=== PATIENT | male | born 1955 | race Caucasian/White ===

== ENCOUNTER 2016-12-29 02:21 | Observation (INO) | payer OTHER, MEDICAID ==
[2016-12-29] MEDS ORDERED: Sodium Chloride 0.9% 1,000 ML IV STA (03:33)
--- NOTE | 2016-12-29 03:58 | ED PDOC ---
HPI: Hypertension/Hypotension Time Seen by Provider: 12/29/16 03:15 Chief Complaint (Nursing): Headache Chief Complaint (Provider): Palpitations History Per: Patient History/Exam Limitations: no limitations Onset/Duration Of Symptoms: Hrs (since after work) Current Symptoms Are (Timing): Still Present Associated Symptoms: Headache. denies: Chest Pain, Dyspnea Quality Of Symptoms: Rapid Heart Rate Additional Complaint(s): 61 year old male presents to ED with complaints of palpitations and has a past medical history of CABG and HTN. Patient notes onset of palpitations as when he left work yesterday. (+) nausea and headache. (-) chest pain, SOB, diarrhea, fever, or chills. Of note, patient recently had a normal cardiac catheter. PCP: KINGSLEY Past Medical History Reviewed: Historical Data, Nursing Documentation, Vital Signs Vital Signs: Last Vital Signs Temp 97.8 F 12/29/16 02:28 Pulse 60 12/29/16 02:28 Resp 18 12/29/16 02:28 BP 108/66 12/29/16 02:28 Pulse Ox 98 12/29/16 02:28 - Medical History PMH: CAD, Depression, HTN, Hypercholesterolemia, Hyperlipidemia Denies: No Chronic Diseases, HIV, Chronic Kidney Disease - Surgical History Surgical History: CABG (x1 vessel 2007) - Family History Family History: States: Hypertension - Social History Current smoker - smoking cessation education provided: No Ex-Smoker (has not smoked in the last 12 months): No Alcohol: None Drugs: Denies - Home Medications Home Medications: Ambulatory Orders Medication Instructions Recorded Aspirin 81 mg PO DAILY 11/22/13 Metoprolol Tartrate 50 mg PO DAILY 11/22/13 Perphenazine 8 mg PO BID 11/22/13 QUEtiapine [SEROquel] 100 mg PO DAILY 11/22/13 Atorvastatin [Lipitor] 10 mg PO DAILY 12/29/16 - Allergies Allergies/Adverse Reactions: Allergies Allergy/AdvReac Type Severity Reaction Status Date / Time No Known Allergies Allergy Verified 07/14/16 08:09 Review of Systems ROS Statement: Except As Marked, All Systems Reviewed And Found Negative Constitutional: Negative for: Fever, Chills Cardiovascular: Positive for: Palpitations. Negative for: Chest Pain Respiratory: Negative for: Shortness of Breath Gastrointestinal: Positive for: Nausea. Negative for: Diarrhea Neurological: Positive for: Headache Physical Exam - Reviewed Nursing Documentation Reviewed: Yes Vital Signs Reviewed: Yes - Physical Exam Appears: Positive for: Non-toxic, No Acute Distress Head Exam: Positive for: ATRAUMATIC, NORMOCEPHALIC Skin: Positive for: Normal Color, Warm, Dry Eye Exam: Positive for: Normal appearance, EOMI, PERRL ENT: Positive for: Normal ENT Inspection Neck: Positive for: Normal Cardiovascular/Chest: Positive for: Regular Rate, Rhythm. Negative for: Murmur Respiratory: Positive for: Normal Breath Sounds. Negative for: Respiratory Distress Gastrointestinal/Abdominal: Positive for: Soft, Tenderness (mild epigastric tenderness) Neurologic/Psych: Positive for: Alert, Oriented. Negative for: Motor/Sensory Deficits - Laboratory Results Result Diagrams: 12/29/16 04:05 12/29/16 04:59 - ECG ECG Rhythm: Positive for: Sinus Bradycardia Interpretation Of ECG: T wave inversion noted to I and IV. Old when compared to July 16, 2016 EKG Rate: 56 O2 Sat by Pulse Oximetry: 98 (RA) Pulse Ox Interpretation: Normal - Progress ED Course And Treament: head ct: FINDINGS: Brain: Minimal periventricular white matter hypodensity. No hemorrhage. Ventricles: Unremarkable. No ventriculomegaly. Bones/joints: Unremarkable. No acute fracture. Soft tissues: Unremarkable. Sinuses: Mild patchy sinus disease. Mastoid air cells: Unremarkable. No mastoid effusion. Orbits: The globe and lens are intact. IMPRESSION: No evidence of an acute intracranial hemorrhage, midline shift or mass effect is identified. Thank you for allowing us to participate in the care of your patient. Dictated and Authenticated by: Alejandra Gomez MD REpeat EKG: no hyperpeak t wave noted. no change from prior . Potassium 5.9 Repeat potassium 6.1 slightly hemolysed d/w Dr. Cynthia Rodrigez 30gm/Reg insulin 10mg iv/ 1 am d[address] Call [address] Bautista for admission. Medical Decision Making Medical Decision Makin Initial impression: palpitations and headache Initial plan * CT HEAD * EKG * Labs * Magnesium * TSH * Trop I * CXR * NS IV * Acetaminophen 650mg PO * Re-eval Scribe Attestation: Documented by Patricia Hernandez acting as a scribe for Carolina Santos PA-C. MD Scribe Attestation: All medical record entries made by the Scribe were at my direction and personally dictated by me. I have reviewed the chart and agree that the record accurately reflects my personal performance of the history, physical exam, medical decision making, and the department course for this patient. I have also personally directed, reviewed, and agree with the discharge instructions and disposition. Disposition - Clinical Impression Clinical Impression: Hyperkalemia, Palpitations, Dehydration - Patient ED Disposition Is Patient to be Admitted: Transfer of Care - Disposition Disposition: Transfer of Care Disposition Time: 06:04 Condition: FAIR Forms: Appscend (Swedish) Patient Signed Over To: Rebecca Marie Handoff Comments: pending d/w Dr. Bautista for admission. - Pt Status Changed To: Hospital Disposition Of: Observation
[2016-12-29 04:13] LABS: BASO % 0.8 % (0.0-2.0); EOS # 0.1 K/uL (0.0-0.7); EOS % 0.9 % (0.0-4.0); HEMATOCRIT 40.3 % (35.0-51.0); LYMPH # 1.3 K/uL (1.0-4.3); LYMPH % 23.2 % (20.0-40.0); MEAN CELL VOLUME 91.6 fl (80.0-94.0); MEAN CORPUSCULAR HGB CONC 33.8 g/dL (33.0-37.0); MEAN PLATELET VOLUME 10.8 fl (7.2-11.7); MONO # 0.5 K/uL (0.0-0.8); MONO % 8.8 % (0.0-10.0); NEUT # 3.9 K/uL (1.8-7.0); NEUT % 66.3 % (50.0-75.0); NRBC % 0.1 % (0.0-0.0); WHITE BLOOD COUNT 5.8 K/uL (4.8-10.8)
[2016-12-29 04:18] LABS: BLOOD UREA NITROGEN 28 mg/dl (9-20); CALCIUM 8.9 mg/dL (8.4-10.2); CARBON DIOXIDE 20 mmol/L (22-30); CHLORIDE 107 mmol/L (98-107); GFR AFRICAN-AMERICAN > 60; GLUCOSE,RANDOM 103 mg/dL (75-110); MAGNESIUM 1.9 MG/DL (1.6-2.3); POTASSIUM 5.9 MMOL/L (3.6-5.0); SODIUM 137 mmol/l (132-148)
[2016-12-29 04:49] LABS: THYROID STIMULATING HORMONE 1.08 mIU/ML (0.46-4.68)
--- NOTE | 2016-12-29 04:51 | CT ---
EXAM: CT Head Without Intravenous Contrast CLINICAL HISTORY: 61 years old, male; Pain; Headache TECHNIQUE: Axial computed tomography images of the head/brain without intravenous contrast. All CT scans at this facility use one or more dose reduction techniques, viz.: automated exposure control; ma/kV adjustment per patient size (including targeted exams where dose is matched to indication; i.e. head); or iterative reconstruction technique. 315 images are submitted. Coronal and sagittal reformatted images were created and reviewed. COMPARISON: CT - HEAD W/O CONTRAST 2013-11-23 10:13 FINDINGS: Brain: Minimal periventricular white matter hypodensity. No hemorrhage. Ventricles: Unremarkable. No ventriculomegaly. Bones/joints: Unremarkable. No acute fracture. Soft tissues: Unremarkable. Sinuses: Mild patchy sinus disease. Mastoid air cells: Unremarkable. No mastoid effusion. Orbits: The globe and lens are intact. IMPRESSION: No evidence of an acute intracranial hemorrhage, midline shift or mass effect is identified.
[2016-12-29] MEDS ORDERED: Insulin Regular 100 units/ml IV STA (05:22)
[2016-12-29] MEDS ORDERED: Dextrose 50% SYRINGE Inj (50 ml) IVP ONE (05:22)
[2016-12-29] MEDS ORDERED: Sod Polystyrene Sulf 15 gm/60 ml Susp PO STA (05:23)
[2016-12-29] MEDS ORDERED: Dextrose 50% SYRINGE Inj (50 ml) ONE (05:31)
[2016-12-29] MEDS ORDERED: Insulin Regular 100 units/ml ONE (05:31)
[2016-12-29] MEDS ORDERED: Sod Polystyrene Sulf 15 gm/60 ml Susp ONE (05:32)
--- NOTE | 2016-12-29 07:35 | CARD ---
APPROVED REPORT EKG Measurement Heart [id number] <Conclusion> Sinus bradycardia Possible Left atrial enlargement T wave abnormality, consider anterior ischemia Abnormal ECG
--- NOTE | 2016-12-29 09:01 | RAD ---
HISTORY: PALPITATIONS COMPARISON: 07/14/2016 FINDINGS: LUNGS: Lung volumes lower limits of normal. No definitive consolidation suggested. The asymmetrically elevated left hemidiaphragm is as before. PLEURA: No significant pleural effusion identified, no pneumothorax apparent. CARDIOVASCULAR: Probable top-normal heart size. Midline sternotomy and coronary artery bypass surgery. Pulmonary vasculature within normal limits. OSSEOUS STRUCTURES: No significant abnormalities. VISUALIZED UPPER ABDOMEN: Normal. OTHER FINDINGS: None. IMPRESSION: No interval pathology appreciated. Status post CABG/midline sternotomy Similar asymmetrically elevated left hemidiaphragm.
[2016-12-29] MEDS: Sodium Chloride 0.9% 1,000 ML IV SCH ×2 (13:21→20:53)
--- NOTE | 2016-12-29 14:24 | CP.PCM.HP ---
History of Present Illness - History of Present Illness History of Present Illness: Patient seen and examined with Dr. Bautista. 61 year old male presented with complaints of chest and abdominal discomfort for one day with associated palpitations. He has had diarrhea since arrival in ED. He is hyperkalemic, states he ate a lot bananas. He has hx of HTN and CABG, cardiac cath this year. 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 No other complaints. Given patients extensive cardiac hx is being admitted for hyperkalemia and dehydration. Rule out ACS. 12 point review of systems negative except as above Present on Admission - Present on Admission Any Indicators Present on Admission: No Past Patient History - Past Medical History & Family History Past Medical History?: Yes - Past Social History Alcohol: None Drugs: Denies - CARDIAC Hx Hypercholesterolemia: Yes Hx Hypertension: Yes - PULMONARY Hx Respiratory Disorders: No - NEUROLOGICAL Hx Neurological Disorder: No - HEENT Hx HEENT Problems: No - RENAL Hx Chronic Kidney Disease: No - ENDOCRINE/METABOLIC Hx Endocrine Disorders: No - HEMATOLOGICAL/ONCOLOGICAL Hx Human Immunodeficiency Virus (HIV): No - INTEGUMENTARY Hx Dermatological Problems: No - MUSCULOSKELETAL/RHEUMATOLOGICAL Hx Musculoskeletal Disorders: No Hx Falls: No - GASTROINTESTINAL Hx Gastrointestinal Disorders: No - GENITOURINARY/GYNECOLOGICAL Hx Genitourinary Disorders: No - PSYCHIATRIC Hx Depression: Yes - SURGICAL HISTORY Hx Coronary Artery Bypass Graft: Yes (x1 vessel 2007) - ANESTHESIA Hx Anesthesia: Yes Hx Anesthesia Reactions: No Hx Malignant Hyperthermia: No Meds Allergies/Adverse Reactions: Allergies Allergy/AdvReac Type Severity Reaction Status Date / Time No Known Allergies Allergy Verified 07/14/16 08:09 Physical Exam - Constitutional Appears: Well, Non-toxic, No Acute Distress - Head Exam Head Exam: ATRAUMATIC, NORMAL INSPECTION, NORMOCEPHALIC - Eye Exam Eye Exam: PERRL - ENT Exam ENT Exam: Mucous Membranes Moist - Neck Exam Neck exam: Positive for: Normal Inspection - Respiratory Exam Respiratory Exam: Clear to Auscultation Bilateral, NORMAL BREATHING PATTERN - Cardiovascular Exam Cardiovascular Exam: REGULAR RHYTHM, +S1, +S2 - GI/Abdominal Exam GI & Abdominal Exam: Soft. absent: Diminished Bowel Sounds, Distended, Guarding , Tenderness - Extremities Exam Extremities exam: Negative for: pedal edema - Neurological Exam Neurological exam: Alert, CN II-XII Intact, Normal Gait, Oriented x3, Reflexes Normal - Psychiatric Exam Psychiatric exam: Normal Affect, Normal Mood - Skin Skin Exam: Dry, Intact, Normal Color, Warm Results - Vital Signs Recent Vital Signs: Last Vital Signs Temp 98.2 F 12/29/16 13:00 Pulse 65 12/29/16 13:00 Resp 19 12/29/16 13:00 BP 112/75 12/29/16 13:00 Pulse Ox 99 12/29/16 13:00 - Labs Result Diagrams: 12/29/16 04:05 12/29/16 04:59 Labs: Laboratory Results - last 24 hr 12/29/16 12/29/16 12/29/16 04:05 04:05 04:59 WBC 5.8 RBC 4.40 Hgb 13.6 Hct 40.3 MCV 91.6 MCH 31.0 MCHC 33.8 RDW 13.0 Plt Count 124 L MPV 10.8 Neut % (Auto) 66.3 Lymph % (Auto) 23.2 Crane % (Auto) 8.8 Eos % (Auto) 0.9 Baso % (Auto) 0.8 Neut # 3.9 Lymph # 1.3 Crane # 0.5 Eos # 0.1 Baso # 0.0 Sodium 137 Potassium 5.9 H 6.1 H Chloride 107 Carbon Dioxide 20 L Anion Gap 16 BUN 28 H Creatinine 1.4 Est GFR ( Amer) > 60 Est GFR (Non-Af Amer) 52 Random Glucose 103 Calcium 8.9 Magnesium 1.9 Troponin I < 0.0120 TSH 3rd Generation 1.08 Assessment & Plan - Assessment and Plan (Free Text) Assessment: 61 year old male with extensive cardiac hx, admitted for palpitations, found to have hyperkalemia and dehydration. IVF started. Dr. Riley consulted. Repeat BMP in AM. Pt had dose of insulin and kayexelate. #Palpitations #Hyperkalemia #Dehydration #HTN #CAD, s/p CABG #DVT Prophylaxis -telemetry monitoring -lovenox -BP is controlled. case d/w Dr. Bautista.
--- NOTE | 2016-12-29 16:52 | CP.PCM.CON ---
History of Present Illness - History of Present Illness History of Present Illness: I was asked to see patient by Dr Bautista. Patient is a 61 year old male with a PMH CAD, HTN, hypercholesterolemia who presents with palpitations. The patient describes a sensation of rapid heart beat which began while he was finishing work. He had a headache, and felt chest pounding. The patient denies syncope. He came to the hosptial. Currently he is asymptomatic. Review of Systems - Constitutional Constitutional: absent: As Per HPI, Anorexia, Chills, Daytime Sleepiness, Excessive Sweating, Fatigue, Fever, Frequent Falls, Headache, Increased Appetite , Lethargy, Malaise, Night Sweats, Snoring, Sleep Apnea, Weight Gain, Weight Loss, Weakness, Other - EENT Eyes: absent: As Per HPI, Blind Spots, Blurred Vision, Change in Vision, Decreased Night Vision, Diplopia, Discharge, Dry Eye, Exophthalmos, Floaters, Irritation, Itchy Eyes, Loss of Peripheral Vision, Pain, Photophobia, Requires Corrective Lenses, Sees Flashes, Spots in Vision, Tunnel Vision, Other Visual Disturbances, Loss of Vision, Other Nose/Mouth/Throat: absent: As Per HPI, Epistaxis, Nasal Congestion, Nasal Discharge, Nasal Obstruction, Nasal Trauma, Nose Pain, Post Nasal Drip, Sinus Pain, Sinus Pressure, Bleeding Gums, Change in Voice, Dental Pain, Dry Mouth, Dysphagia, Halitosis, Hoarsness, Lip Swelling, Mouth Lesions, Mouth Pain, Odynophagia, Sore Throat, Throat Swelling, Tongue Swelling, Facial Pain, Neck Pain, Neck Mass, Other - Cardiovascular Cardiovascular: Palpitations - Respiratory Respiratory: absent: As Per HPI, Cough, Dyspnea, Hemoptysis, Dyspnea on Exertion , Wheezing, Snoring, Stridor, Pain on Inspiration, Chest Congestion, Excessive Mucous Production, Change in Mucous Color, Pain with Coughing, Other - Gastrointestinal Gastrointestinal: absent: As Per HPI, Abdominal Pain, Belching, Bloating, Change in Bowel Habits, Change in Stool Character, Coffee Ground Emesis, Constipation, Cramping, Diarrhea, Dyspepsia, Dysphagia, Early Satiety, Excessive Flatus, Fecal Incontinence, Heartburn, Hematemesis, Hematochezia, Loose Stools, Melena, Nausea, Odynophagia, Temesmus, Vomiting, Other - Genitourinary Genitourinary: absent: As Per HPI, Change in Urinary Stream, Difficulty Urinating, Dysuria, Flank Pain, Hematuria, Pyuria, Nocturia, Urinary Incontinence, Urinary Frequency, Urinary Hesitance, Urinary Urgency, Voiding Freq/Small Amts, Freq UTI, Hx Renal/Bladder Calculi, Hx /Renal Surgery, Bladder Distension, Other - Musculoskeletal Musculoskeletal: absent: As Per HPI, Abnormal Gait, Arthralgias, Atrophy, Back Pain, Deformity, Joint Swelling, Limited Range of Motion, Loss of Height, Muscle Cramps, Muscle Weakness, Myalgias, Neck Pain, Numbness, Radiating Pain into Limb, Stiffness, Tingling, Other - Integumentary Integumentary: absent: As Per HPI, Acne, Alopecia, Bleeding Lesions, Change in Hair, Change in Nails, Change in Pigmentation, Changing Lesions, Dry Skin, Erythema, Furuncle, Hirsutism, Lesions, New Lesions, Non-Healing Lesions, Photosensitivity, Pruritus, Rash, Skin Pain, Skin Ulcer, Sores, Striae, Swelling , Unusual Bruising, Wounds, Jaundice, Other - Neurological Neurological: absent: As Per HPI, Abnormal Gait, Abnormal Hearing, Abnormal Movements, Abnormal Speech, Behavioral Changes, Burning Sensations, Confusion, Convulsions, Disequilibrium, Dizziness, Numbness, Focal Weakness, Frequent Falls , Headaches, Lack of Coordination, Loss of Vision, Memory Loss, Paresthesias, Radicular Pain, Restless Legs, Sensory Deficit, Syncope, Tingling, Tremor, Vertigo, Weakness, Other Visual Disturbances, Other - Psychiatric Psychiatric: absent: As Per HPI, Abnormal Sleep Pattern, Anhedonia, Anxiety, Auditory Hallucinations, Behavioral Changes, Change in Appetite, Change in Libido, Confusion, Depression, Difficulty Concentrating, Hallucinations, Homicidal Ideation, Hopelessness, Irritability, Memory Loss, Mood Swings, Panic Attacks, Paranoia, Suicidal Ideation, Visual Hallucinations, Tactile Hallucinations, Other - Endocrine Endocrine: absent: As Per HPI, Change in Body Appearance, Change in Libido, Cold Intolorance, Deepening of Voice, Excessive Sweating, Fatigue, Flushing, Heat Intolorance, Increase in Ring/Shoe/Hat Size, Palpitations, Polydipsia, Polyphagia, Polyuria, Other - Hematologic/Lymphatic Hematologic: absent: As Per HPI, Easy Bleeding, Easy Bruising, Lymphadenopathy, Other Past Patient History - Past Medical History & Family History Past Medical History?: Yes - Past Social History Alcohol: None Drugs: Denies - CARDIAC Hx Cardiac Disorders: Yes - PULMONARY Hx Respiratory Disorders: No - NEUROLOGICAL Hx Neurological Disorder: No - HEENT Hx HEENT Problems: No - RENAL Hx Chronic Kidney Disease: No - ENDOCRINE/METABOLIC Hx Endocrine Disorders: No - HEMATOLOGICAL/ONCOLOGICAL Hx Human Immunodeficiency Virus (HIV): No - INTEGUMENTARY Hx Dermatological Problems: No - MUSCULOSKELETAL/RHEUMATOLOGICAL Hx Musculoskeletal Disorders: No - GASTROINTESTINAL Hx Gastrointestinal Disorders: No - GENITOURINARY/GYNECOLOGICAL Hx Genitourinary Disorders: No - PSYCHIATRIC Hx Psychophysiologic Disorder: No - SURGICAL HISTORY Hx Coronary Artery Bypass Graft: Yes (x1 vessel 2008) - ANESTHESIA Hx Anesthesia: Yes Hx Anesthesia Reactions: No Hx Malignant Hyperthermia: No Meds Allergies/Adverse Reactions: Allergies Allergy/AdvReac Type Severity Reaction Status Date / Time No Known Allergies Allergy Verified 07/14/16 08:09 - Medications Medications: Current Medications Aspirin (Aspirin Chewable) 81 mg PO DAILY [facility] Atorvastatin Calcium (Lipitor) 10 mg PO DAILY [facility] Enoxaparin Sodium (Lovenox) 40 mg SC DAILY [facility] PRN Reason: Protocol Sodium Chloride (Sodium Chloride 0.9%) 1,000 mls @ 150 mls/hr IV .Q6H40M [facility] Stop: 12/30/16 12:23 Last Admin: 12/29/16 13:21 Dose: 150 mls/hr Metoprolol Tartrate (Lopressor) 50 mg PO DAILY [facility] Perphenazine (Perphenazine) 8 mg PO BID [facility] Quetiapine Fumarate (Seroquel) 100 mg PO DAILY [facility] Physical Exam - Constitutional Appears: Non-toxic - Head Exam Head Exam: NORMAL INSPECTION - Eye Exam Eye Exam: Normal appearance - ENT Exam ENT Exam: Mucous Membranes Moist - Neck Exam Neck exam: Positive for: Full Rom - Respiratory Exam Respiratory Exam: Decreased Breath Sounds - Cardiovascular Exam Cardiovascular Exam: REGULAR RHYTHM - GI/Abdominal Exam GI & Abdominal Exam: Normal Bowel Sounds - Rectal Exam Rectal Exam: Deferred - Extremities Exam Extremities exam: Positive for: pedal edema - Back Exam Back exam: NORMAL INSPECTION - Neurological Exam Neurological exam: Alert, Oriented x3 - Psychiatric Exam Psychiatric exam: Normal Affect - Skin Skin Exam: Normal Color Results - Vital Signs Recent Vital Signs: Last Vital Signs Temp 97.8 F 12/29/16 16:05 Pulse 80 12/29/16 16:05 Resp 20 12/29/16 16:05 BP 126/81 12/29/16 16:05 Pulse Ox 95 12/29/16 16:05 - Labs Result Diagrams: 12/29/16 04:05 12/29/16 04:59 Labs: Laboratory Results - last 24 hr 12/29/16 12/29/16 12/29/16 04:05 04:05 04:59 WBC 5.8 RBC 4.40 Hgb 13.6 Hct 40.3 MCV 91.6 MCH 31.0 MCHC 33.8 RDW 13.0 Plt Count 124 L MPV 10.8 Neut % (Auto) 66.3 Lymph % (Auto) 23.2 Chaves % (Auto) 8.8 Eos % (Auto) 0.9 Baso % (Auto) 0.8 Neut # 3.9 Lymph # 1.3 Chaves # 0.5 Eos # 0.1 Baso # 0.0 Sodium 137 Potassium 5.9 H 6.1 H Chloride 107 Carbon Dioxide 20 L Anion Gap 16 BUN 28 H Creatinine 1.4 Est GFR ( Amer) > 60 Est GFR (Non-Af Amer) 52 Random Glucose 103 Calcium 8.9 Magnesium 1.9 Troponin I < 0.0120 TSH 3rd Generation 1.08 12/29/16 14:30 WBC RBC Hgb Hct MCV MCH MCHC RDW Plt Count MPV Neut % (Auto) Lymph % (Auto) Chaves % (Auto) Eos % (Auto) Baso % (Auto) Neut # Lymph # Chaves # Eos # Baso # Sodium Potassium Chloride Carbon Dioxide Anion Gap BUN Creatinine Est GFR ( Amer) Est GFR (Non-Af Amer) Random Glucose Calcium Magnesium Troponin I < 0.0120 TSH 3rd Generation - EKG Data EKG Interpreted by: Myself Assessment & Plan (1) Palpitations Assessment and Plan: will monitor on telemetry. If no further arrhythmia, likely discharge tomorrow. Status: Acute (2) CAD (coronary artery disease) of artery bypass graft Assessment and Plan: ASA therapy Status: Chronic (3) HTN (hypertension) Assessment and Plan: beta kristi therapy is recommended Status: Chronic
[2016-12-30] MEDS: Sodium Chloride 0.9% 1,000 ML IV SCH (02:39)
[2016-12-30 06:46] LABS: BLOOD UREA NITROGEN 15 mg/dl (9-20); CALCIUM 8.2 mg/dL (8.4-10.2); CARBON DIOXIDE 21 mmol/L (22-30); CHLORIDE 111 mmol/L (98-107); GFR AFRICAN-AMERICAN > 60; GLUCOSE,RANDOM 89 mg/dL (75-110); POTASSIUM 4.3 MMOL/L (3.6-5.0); SODIUM 140 mmol/l (132-148)
[2016-12-30] MEDS ORDERED: Enoxaparin 40 mg Syringe SC SCH (09:00)
--- NOTE | 2016-12-30 12:02 | CP.PCM.DIS ---
Provider - Provider Date of Admission: 12/29/16 06:25 Attending physician: Emmanuel Bautista MD Consults: Cardiology: Dr. Riley Time Spent in preparation of Discharge (in minutes): 35 Diagnosis - Discharge Diagnosis (1) Dehydration Status: Resolved (2) Hyperkalemia Status: Resolved (3) Palpitations Status: Resolved Hospital Course - Lab Results Lab Results: Most Recent Lab Values WBC 5.8 K/uL (4.8-10.8) 12/29/16 04:05 RBC 4.40 Mil/uL (4.40-5.90) 12/29/16 04:05 Hgb 13.6 g/dL (12.0-18.0) 12/29/16 04:05 Hct 40.3 % (35.0-51.0) 12/29/16 04:05 MCV 91.6 fl (80.0-94.0) 12/29/16 04:05 MCH 31.0 pg (27.0-31.0) 12/29/16 04:05 MCHC 33.8 g/dL (33.0-37.0) 12/29/16 04:05 RDW 13.0 % (11.5-14.5) 12/29/16 04:05 Plt Count 124 K/uL (130-400) L 12/29/16 04:05 MPV 10.8 fl (7.2-11.7) 12/29/16 04:05 Neut % (Auto) 66.3 % (50.0-75.0) 12/29/16 04:05 Lymph % (Auto) 23.2 % (20.0-40.0) 12/29/16 04:05 Trinity % (Auto) 8.8 % (0.0-10.0) 12/29/16 04:05 Eos % (Auto) 0.9 % (0.0-4.0) 12/29/16 04:05 Baso % (Auto) 0.8 % (0.0-2.0) 12/29/16 04:05 Neut # 3.9 K/uL (1.8-7.0) 12/29/16 04:05 Lymph # 1.3 K/uL (1.0-4.3) 12/29/16 04:05 Trinity # 0.5 K/uL (0.0-0.8) 12/29/16 04:05 Eos # 0.1 K/uL (0.0-0.7) 12/29/16 04:05 Baso # 0.0 K/uL (0.0-0.2) 12/29/16 04:05 Sodium 140 mmol/l (132-148) 12/30/16 04:20 Potassium 4.3 MMOL/L (3.6-5.0) 12/30/16 04:20 Chloride 111 mmol/L (98-107) H 12/30/16 04:20 Carbon Dioxide 21 mmol/L (22-30) L 12/30/16 04:20 Anion Gap 12 (10-20) 12/30/16 04:20 BUN 15 mg/dl (9-20) 12/30/16 04:20 Creatinine 1.0 mg/dl (0.8-1.5) 12/30/16 04:20 Est GFR ( Amer) > 60 12/30/16 04:20 Est GFR (Non-Af Amer) > 60 12/30/16 04:20 Random Glucose 89 mg/dL (75-110) 12/30/16 04:20 Calcium 8.2 mg/dL (8.4-10.2) L 12/30/16 04:20 Magnesium 1.9 MG/DL (1.6-2.3) 12/29/16 04:05 Troponin I < 0.0120 ng/mL (0.00-0.120) 12/29/16 14:30 TSH 3rd Generation 1.08 mIU/ML (0.46-4.68) 12/29/16 04:05 - Hospital Course Hospital Course: 61 year old male admitted with hyperkaleia, dehydration and palpiations. Seen and evaluated by cardiology, Dr. Riley. Patient feeling better. Hypokalemia and dehydration resolved. Follow up with PCP and Iron Installer outpatient. - Date & Time of H&P Date of H&P: 12/29/16 Time of H&P: 14:24 Discharge Exam - Head Exam Head Exam: ATRAUMATIC, NORMAL INSPECTION, NORMOCEPHALIC - Eye Exam Eye Exam: EOMI, Normal appearance, PERRL - Respiratory Exam Respiratory Exam: Clear to PA & Lateral, NORMAL BREATHING PATTERN, UNREMARKABLE - Cardiovascular Exam Cardiovascular Exam: REGULAR RHYTHM, +S1, +S2. absent: Bradycardia, Tachycardia , Diastolic murmur, Systolic Murmur - GI/Abdominal Exam GI & Abdominal Exam: Normal Bowel Sounds, Unremarkable - Neurological Exam Neurological exam: Alert, CN II-XII Intact, Normal Gait, Oriented x3 - Psychiatric Exam Psychiatric exam: Normal Affect, Normal Mood - Skin Skin Exam: Dry, Intact, Normal Color, Warm Discharge Plan - Follow Up Plan Condition: FAIR Disposition: HOME/ ROUTINE Instructions: Hyperkalemia (DC), Dehydration (DC), Palpitations (DC) Referrals: Min Riley MD [Staff Provider] -
[2016-12-30 12:43] VITALS: O2SAT 98
[2016-12-30 16:20] VITALS: BP 138/79; PULSE 74; RESP 18; TEMP 98.8
== END 2016-12-30 12:45 | disposition home or self-care (01) ==
LOC: H.ER 02:21 → H.ERHOLD 06:25 → H.TEL 16:03
PROVIDERS: ADMIT Family Medicine; ATTEND Family Medicine
DX: E86.0 Dehydration (principal); E87.5 Hyperkalemia; R00.2 Palpitations; I25.10 Atherosclerotic heart disease of native coronary artery without angina pectoris; Z95.1 Presence of aortocoronary bypass graft; I10 Essential (primary) hypertension; E78.00 Pure hypercholesterolemia, unspecified; E78.5 Hyperlipidemia, unspecified; R19.7 Diarrhea, unspecified; F32.9 Major depressive disorder, single episode, unspecified
CPT/HCPCS: 36415; 70450; 71010; 80048; 83735; 84132; 84443; 84484; 85025; 93005; 96374; 99285; G0378; J1650; J7040; Q0175

== ENCOUNTER 2017-02-01 22:20 | Emergency (ER) | payer OTHER, MEDICAID ==
[2017-02-01 22:24] VITALS: PULSE 57; RESP 22; TEMP 98.1; O2SAT 98
[2017-02-01] MEDS ORDERED: Sodium Chloride 0.9% 1,000 ML IV STA (22:37)
--- NOTE | 2017-02-01 22:40 | ED PDOC ---
HPI:Nausea, Vomiting, Diarrhea Time Seen by Provider: 02/01/17 22:28 Chief Complaint (Nursing): Abdominal Pain Chief Complaint (Provider): vomiting, diarrhea History Per: Patient History/Exam Limitations: no limitations Onset/Duration Of Symptoms: Days (1) Current Symptoms Are (Timing): Still Present Quality Of Discomfort: Cramping, "Pain" Associated Symptoms: Nausea, Vomiting, Diarrhea Additional History Per: Patient Additional Complaint(s): 61 y/o male presents with multiple episodes of vomiting and nonbloody diarrhea x 1 day. Associated diffuse abdominal cramping. Patient states symptoms started after eating a chicken soup. Denies fever, congestion, chest pain, shortness of breath, palpitations, urinary symptoms, recent travel, sick contacts. Past Medical History Reviewed: Historical Data, Nursing Documentation, Vital Signs Vital Signs: Last Vital Signs Temp 98.1 F 02/01/17 22:22 Pulse 57 L 02/01/17 22:22 Resp 22 02/01/17 22:22 BP 171/105 H 02/01/17 22:22 Pulse Ox 98 02/01/17 22:22 - Medical History PMH: CAD, Depression, HTN, Hypercholesterolemia, Hyperlipidemia Denies: HIV, Chronic Kidney Disease - Surgical History Surgical History: CABG (x1 vessel 2007) - Family History Family History: States: Hypertension - Home Medications Home Medications: Ambulatory Orders Medication Instructions Recorded Aspirin 81 mg PO DAILY 11/22/13 Metoprolol Tartrate 50 mg PO DAILY 11/22/13 Perphenazine 8 mg PO BID 11/22/13 QUEtiapine [SEROquel] 100 mg PO DAILY 11/22/13 Atorvastatin [Lipitor] 10 mg PO DAILY 12/29/16 Dicyclomine [Bentyl] 20 mg PO TID PRN #15 tab 02/02/17 Famotidine [Pepcid] 20 mg PO BID #10 tab 02/02/17 Ondansetron ODT [Zofran ODT] 4 mg PO Q8 PRN #10 odt 02/02/17 - Allergies Allergies/Adverse Reactions: Allergies Allergy/AdvReac Type Severity Reaction Status Date / Time No Known Allergies Allergy Verified 07/14/16 08:09 Review of Systems ROS Statement: Except As Marked, All Systems Reviewed And Found Negative Gastrointestinal: Positive for: Nausea, Vomiting, Abdominal Pain, Diarrhea Physical Exam - Reviewed Nursing Documentation Reviewed: Yes Vital Signs Reviewed: Yes - Physical Exam Appears: Positive for: Well, Non-toxic, Uncomfortable Head Exam: Positive for: ATRAUMATIC, NORMAL INSPECTION, NORMOCEPHALIC Skin: Positive for: Normal Color Eye Exam: Positive for: Normal appearance ENT: Positive for: Normal ENT Inspection Cardiovascular/Chest: Positive for: Regular Rate, Rhythm Respiratory: Positive for: Normal Breath Sounds - Laboratory Results Result Diagrams: 02/01/17 23:25 02/01/17 23:25 - ECG O2 Sat by Pulse Oximetry: 98 - Progress ED Course And Treament: labs, IV fluids, IV zofran, IV pepcid, PO bentyl On re-eval, patient states he is feeling better. Tolerated PO. Patient educated on findings, discharged with rx Zofran, Pepcid, Bentyl. Advised fluids, rest. Follow up PMD 2-3 days. Return precautions given. Disposition - Clinical Impression Clinical Impression: Gastroenteritis - Patient ED Disposition Is Patient to be Admitted: No Counseled Patient/Family Regarding: Studies Performed, Diagnosis, Need For Followup, Rx Given - Disposition Disposition: Routine/Home Disposition Time: 02:12 Condition: IMPROVED Prescriptions: Dicyclomine [Bentyl] 20 mg PO TID PRN #15 tab PRN Reason: Pain, Mild (1-3) Famotidine [Pepcid] 20 mg PO BID #10 tab Ondansetron ODT [Zofran ODT] 4 mg PO Q8 PRN #10 odt PRN Reason: Nausea/Vomiting Instructions: Gastroenteritis (ED) Forms: [employer] (Hungarian) Print Language: LIBYAN
[2017-02-01 23:34] LABS: BASO % 0.2 % (0.0-2.0); EOS # 0.1 K/uL (0.0-0.7); EOS % 1.9 % (0.0-4.0); HEMOGLOBIN 15.5 g/dL (12.0-18.0); LYMPH # 0.4 K/uL (1.0-4.3); LYMPH % 8.1 % (20.0-40.0); MEAN CELL VOLUME 95.1 fl (80.0-94.0); MEAN CORPUSCULAR HEMOGLOBIN 30.2 pg (27.0-31.0); MEAN CORPUSCULAR HGB CONC 31.7 g/dL (33.0-37.0); MONO # 0.4 K/uL (0.0-0.8); MONO % 7.8 % (0.0-10.0); NEUT # 4.2 K/uL (1.8-7.0); PLATELET COUNT 105 K/uL (130-400); RBC 5.14 Mil/uL (4.40-5.90); RED CELL DISTRIBUTION WIDTH 12.7 % (11.5-14.5); WHITE BLOOD COUNT 5.1 K/uL (4.8-10.8)
[2017-02-01 23:50] LABS: ALB/GLOB RATIO 1.3 (1.0-2.1); ALBUMIN 4.6 g/dL (3.5-5.0); ALT/SGPT 38 U/L (21-72); AST/SGOT 33 U/L (17-59); BLOOD UREA NITROGEN 18 mg/dl (9-20); CALCIUM 9.1 mg/dL (8.4-10.2); GFR AFRICAN-AMERICAN > 60; GFR NON-AFRICAN AMERICAN > 60; LIPASE 41 U/L (23-300)
[2017-02-02 01:26] LABS: EOSINOPHIL 2 % (0-7); LYMPHOCYTE 8 % (20-50); MONOCYTE 4 % (0-10); NEUTROPHIL 86 % (42-75); TOTAL CELLS COUNTED 100
[2017-02-02 01:27] LABS: PLATELET ESTIMATE DECREASED (NORMAL)
[2017-02-02 02:25] VITALS: BP 135/85
== END 2017-02-02 02:21 | disposition home or self-care (01) ==
LOC: H.ER 22:20
DX: K52.9 Noninfective gastroenteritis and colitis, unspecified (principal); E78.00 Pure hypercholesterolemia, unspecified; F32.9 Major depressive disorder, single episode, unspecified; I10 Essential (primary) hypertension; I25.10 Atherosclerotic heart disease of native coronary artery without angina pectoris; Z79.82 Long term (current) use of aspirin; Z95.1 Presence of aortocoronary bypass graft
CPT/HCPCS: 80053; 83690; 85025; 96374; 99282; J2405; J7040

== ENCOUNTER 2017-03-31 23:18 | Emergency (ER) | payer MEDICARE, MEDICAID ==
[2017-03-31 23:55] VITALS: O2SAT 98
[2017-04-01] MEDS ORDERED: Sodium Chloride 0.9% 1,000 ML IV STA (01:06)
[2017-04-01 01:47] LABS: BASO # 0.1 K/uL (0.0-0.2); BASO % 1.2 % (0.0-2.0); EOS # 0.2 K/uL (0.0-0.7); EOS % 3.6 % (0.0-4.0); HEMOGLOBIN 13.3 g/dL (12.0-18.0); LYMPH # 1.5 K/uL (1.0-4.3); LYMPH % 31.5 % (20.0-40.0); MEAN CELL VOLUME 93.5 fl (80.0-94.0); MEAN CORPUSCULAR HEMOGLOBIN 31.2 pg (27.0-31.0); MEAN CORPUSCULAR HGB CONC 33.4 g/dL (33.0-37.0); MEAN PLATELET VOLUME 9.5 fl (7.2-11.7); MONO # 0.5 K/uL (0.0-0.8); MONO % 11.2 % (0.0-10.0); NEUT # 2.6 K/uL (1.8-7.0); NEUT % 52.5 % (50.0-75.0); NRBC % 0.1 % (0.0-0.0); RBC 4.28 Mil/uL (4.40-5.90); RED CELL DISTRIBUTION WIDTH 12.9 % (11.5-14.5); WHITE BLOOD COUNT 4.9 K/uL (4.8-10.8)
[2017-04-01 01:57] LABS: ALB/GLOB RATIO 1.2 (1.0-2.1); ALBUMIN 4.4 g/dL (3.5-5.0); ALT/SGPT 32 U/L (21-72); AST/SGOT 32 U/L (17-59); BLOOD UREA NITROGEN 33 mg/dl (9-20); CALCIUM 9.4 mg/dL (8.4-10.2); GFR AFRICAN-AMERICAN > 60; GFR NON-AFRICAN AMERICAN 56
[2017-04-01 03:29] VITALS: BP 154/83; PULSE 84; RESP 17
[2017-04-01 03:30] VITALS: TEMP 98.1
--- NOTE | 2017-04-01 04:02 | ED PDOC ---
HPI: Abdomen Time Seen by Provider: 04/01/17 01:04 Chief Complaint (Nursing): Flu-like Symptoms Chief Complaint (Provider): Diarrhea and Flu-like symtoms History Per: Patient History/Exam Limitations: no limitations Onset/Duration Of Symptoms: Days (2x) Current Symptoms Are (Timing): Better Associated Symptoms: Diarrhea (non-bloody) Additional Complaint(s): Calvin Bates, a 61 y/o male with past medical history of hypertension presents to the ED complaining of non-bloody diarrhea onset two days ago. Reports he had flu-like symptoms of cough, diarrhea, weakness, and abdominal pain onset six days ago. PMD: Radha Hay Past Medical History Reviewed: Historical Data, Nursing Documentation, Vital Signs Vital Signs: Last Vital Signs Temp 98.1 F 04/01/17 03:30 Pulse 84 04/01/17 02:46 Resp 17 04/01/17 02:46 BP 154/83 H 04/01/17 02:46 Pulse Ox 98 04/01/17 04:10 - Medical History PMH: CAD, Depression, HTN, Hypercholesterolemia, Hyperlipidemia Denies: HIV, Chronic Kidney Disease - Surgical History Surgical History: CABG (x1 vessel 2007) - Family History Family History: States: Hypertension - Home Medications Home Medications: Ambulatory Orders Medication Instructions Recorded Aspirin 81 mg PO DAILY 11/22/13 Metoprolol Tartrate 50 mg PO DAILY 11/22/13 Perphenazine 8 mg PO BID 11/22/13 QUEtiapine [SEROquel] 100 mg PO DAILY 11/22/13 Atorvastatin [Lipitor] 10 mg PO DAILY 12/29/16 Dicyclomine [Bentyl] 20 mg PO TID PRN #15 tab 02/02/17 Famotidine [Pepcid] 20 mg PO BID #10 tab 02/02/17 Ondansetron ODT [Zofran ODT] 4 mg PO Q8 PRN #10 odt 02/02/17 Dicyclomine [Bentyl] 20 mg PO Q12 PRN #20 tab 04/01/17 Ondansetron ODT [Zofran ODT] 4 mg PO Q6H PRN #8 odt 04/01/17 - Allergies Allergies/Adverse Reactions: Allergies Allergy/AdvReac Type Severity Reaction Status Date / Time No Known Allergies Allergy Verified 03/31/17 23:50 Review of Systems ROS Statement: Except As Marked, All Systems Reviewed And Found Negative Constitutional: Positive for: Weakness Respiratory: Positive for: Cough Gastrointestinal: Positive for: Abdominal Pain, Diarrhea (2x) Physical Exam - Reviewed Nursing Documentation Reviewed: Yes Vital Signs Reviewed: Yes - Physical Exam Appears: Positive for: Well, Non-toxic, No Acute Distress Head Exam: Positive for: ATRAUMATIC Skin: Positive for: Normal Color, Warm, Dry Eye Exam: Positive for: EOMI, Normal appearance, PERRL ENT: Positive for: Other (mucous membrane are dry) Neck: Positive for: Normal, Painless ROM, Supple. Negative for: Decreased ROM Cardiovascular/Chest: Positive for: Regular Rate, Rhythm. Negative for: Murmur , Bradycardia Respiratory: Positive for: Normal Breath Sounds. Negative for: Decreased Breath Sounds, Accessory Muscle Use, Respiratory Distress Gastrointestinal/Abdominal: Positive for: Normal Exam, Bowel Sounds, Soft. Negative for: Tenderness Back: Positive for: Normal Inspection. Negative for: L CVA Tenderness, R CVA Tenderness Extremity: Positive for: Normal ROM. Negative for: Tenderness, Pedal Edema, Deformity Neurologic/Psych: Positive for: Alert, Oriented (x3), Gait - Laboratory Results Result Diagrams: 04/01/17 01:35 04/01/17 01:35 - ECG O2 Sat by Pulse Oximetry: 98 (RA) Pulse Ox Interpretation: Normal Medical Decision Making Medical Decision Making: Time: 01:05 Initial Impression: 61 y/o male with diarrhea and flu-like symptoms Initial Plan: --EKG --CMP --CBC --Bentyl 20mg --Normal Saline 1000mls/hr --Reevaluation Patient's reports improvement in symptoms. Clinical Impression: Gastroenteritis Upon provider evaluation patient is medically stable, and requires no further treatment in the ED at this time. Patient will be discharged with Bentyl 20mg and Zofran ODT 4mg for gastroenteritis. Counseling was provided and all questions were answered regarding diagnosis and need for follow up with PMD. There is agreement to discharge plan. Return if symptoms persist or worsen. Documented by Chester Delvalle acting as a scribe for Vamshi Jarvis MD. All medical record entries made by the Scribe were at my direction and personally dictated by me. I have reviewed the chart and agree that the record accurately reflects my personal performance of the history, physical exam, medical decision making, and the department course for this patient. I have also personally directed, reviewed, and agree with the discharge instructions and disposition. Disposition - Clinical Impression Clinical Impression: Gastroenteritis - Patient ED Disposition Is Patient to be Admitted: No - Disposition Referrals: Radha Hay MD [Primary Care Provider] - Disposition: Routine/Home Disposition Time: 03:50 Condition: IMPROVED Prescriptions: Dicyclomine [Bentyl] 20 mg PO Q12 PRN #20 tab PRN Reason: abdominal pain/diarrhea Ondansetron ODT [Zofran ODT] 4 mg PO Q6H PRN #8 odt PRN Reason: Nausea/Vomiting Instructions: Gastroenteritis (ED) Forms: [employer] (Kazakh) Print Language: THAI
--- NOTE | 2017-04-01 23:12 | CARD ---
APPROVED REPORT EKG Measurement Heart [id number] <Conclusion> Sinus bradycardia Possible Left atrial enlargement T wave abnormality, consider anterior ischemia Abnormal ECG
== END 2017-04-01 03:25 | disposition home or self-care (01) ==
LOC: H.ER 23:18
DX: K52.9 Noninfective gastroenteritis and colitis, unspecified (principal); I10 Essential (primary) hypertension; E78.00 Pure hypercholesterolemia, unspecified; F32.9 Major depressive disorder, single episode, unspecified; I25.10 Atherosclerotic heart disease of native coronary artery without angina pectoris; Z79.82 Long term (current) use of aspirin; Z95.1 Presence of aortocoronary bypass graft
CPT/HCPCS: 80053; 85025; 93005; 99284; J7040

== ENCOUNTER 2017-04-03 21:28 | Emergency (ER) | payer MEDICARE, MEDICAID ==
[2017-04-03 21:41] VITALS: O2SAT 100
--- NOTE | 2017-04-03 22:23 | ED PDOC ---
HPI: General Adult Time Seen by Provider: 04/03/17 21:45 Chief Complaint (Nursing): Dizziness/Lightheaded History Per: Patient, [employer] ([place] #[id number]) Additional Complaint(s): Pt. states for the past 2 weeks he's had cough, congestion. Reports he initially had a tactile fever but never checked his temperature. For the past 3 days he's developed periumbilical abdominal pain (1 episode of non-bloody watery diarrhea) and weakness. He states he feels that he loses his balance as he feels weak. Reports no spinning sensation. He was seen in ED on 03/31/2017 in this ED for same symptoms and was dc'd after negative blood work. Pt. was informed at that time that he was dehydrated. Last BM today was normal. Deneis N /V/D, chest pain, palpitations, SOB, melena, hematochezia, BRBPR, hemoptysis, headache, head injury. Past Medical History Reviewed: Historical Data, Nursing Documentation, Vital Signs Vital Signs: Last Vital Signs Temp 98 F 04/03/17 22:57 Pulse 56 L 04/03/17 22:57 Resp 18 04/03/17 22:57 BP 149/93 H 04/03/17 22:57 Pulse Ox 100 04/04/17 01:46 - Medical History PMH: CAD, Depression, HTN, Hypercholesterolemia, Hyperlipidemia Denies: HIV, Chronic Kidney Disease - Surgical History Surgical History: CABG (x1 vessel 2007) - Family History Family History: States: Hypertension - Home Medications Home Medications: Ambulatory Orders Medication Instructions Recorded Aspirin 81 mg PO DAILY 11/22/13 Metoprolol Tartrate 50 mg PO DAILY 11/22/13 Perphenazine 8 mg PO BID 11/22/13 QUEtiapine [SEROquel] 100 mg PO DAILY 11/22/13 Atorvastatin [Lipitor] 10 mg PO DAILY 12/29/16 Dicyclomine [Bentyl] 20 mg PO TID PRN #15 tab 02/02/17 Famotidine [Pepcid] 20 mg PO BID #10 tab 02/02/17 Ondansetron ODT [Zofran ODT] 4 mg PO Q8 PRN #10 odt 02/02/17 Dicyclomine [Bentyl] 20 mg PO Q12 PRN #20 tab 04/01/17 Ondansetron ODT [Zofran ODT] 4 mg PO Q6H PRN #8 odt 04/01/17 - Allergies Allergies/Adverse Reactions: Allergies Allergy/AdvReac Type Severity Reaction Status Date / Time No Known Allergies Allergy Verified 04/03/17 21:33 Review of Systems ROS Statement: Except As Marked, All Systems Reviewed And Found Negative Gastrointestinal: Positive for: Abdominal Pain Neurological: Positive for: Weakness Physical Exam - Reviewed Nursing Documentation Reviewed: Yes Vital Signs Reviewed: Yes - Physical Exam Appears: Positive for: Well, Non-toxic, No Acute Distress Head Exam: Positive for: ATRAUMATIC, NORMAL INSPECTION, NORMOCEPHALIC Skin: Positive for: Normal Color, Warm. Negative for: Rash Eye Exam: Positive for: Normal appearance, EOMI, PERRL. Negative for: Nystagmus ENT: Positive for: Normal ENT Inspection Neck: Positive for: Normal, Painless ROM Cardiovascular/Chest: Positive for: Regular Rate, Rhythm Respiratory: Positive for: CNT, Normal Breath Sounds Gastrointestinal/Abdominal: Positive for: Normal Exam, Bowel Sounds, Soft. Negative for: Tenderness Back: Positive for: Normal Inspection. Negative for: L CVA Tenderness, R CVA Tenderness Extremity: Positive for: Normal ROM Neurologic/Psych: Positive for: Alert, Oriented, Gait (steady, unassisted). Negative for: Aphasia, Facial Droop - Laboratory Results Result Diagrams: 04/03/17 22:50 04/03/17 22:50 - ECG O2 Sat by Pulse Oximetry: 100 - Progress ED Course And Treament: Labs ordered. CT abd/pelvis w/ IV contrast ordered. CT abd/pelvis w/ IV contrast: No acute findings. Enlarged prostate Pt. informed of results and reports feeling much better. Denies weakness. Tolerating PO fluids in ED. States he has an appointment with a urologist regarding his enlarged prostate this coming week. Case d/w Dr. Marie who agrees with care and disposition. Repeat BP: 142/105 Pt. states he has not taken his Metoprolol in 2 days. Denies headache, chest pain, SOB, palpitations, visual changes. Offered further diagnostics and treatment of elevated BP but refused. Pt. states he will just take his Metoprolol. Requesting to be dc'd. As per Bonnie RUSH pt. took a dose of his own Metoprolol in ED. Disposition - Clinical Impression Clinical Impression: Viral syndrome, Abdominal pain - Patient ED Disposition Is Patient to be Admitted: No - Disposition Referrals: [facility] [Outside] Disposition: Routine/Home Disposition Time: 00:12 Condition: IMPROVED Instructions: Viral Syndrome (DC), Stomach Ache and Stomach Upset Forms: [employer] (Nepali) Print Language: DIVEHI
[2017-04-03 22:55] LABS: EOS # 0.2 K/uL (0.0-0.7); EOS % 3.7 % (0.0-4.0); HEMOGLOBIN 13.3 g/dL (12.0-18.0); LYMPH # 1.7 K/uL (1.0-4.3); LYMPH % 39.4 % (20.0-40.0); MEAN CELL VOLUME 92.9 fl (80.0-94.0); MEAN CORPUSCULAR HEMOGLOBIN 31.7 pg (27.0-31.0); MEAN CORPUSCULAR HGB CONC 34.2 g/dL (33.0-37.0); MEAN PLATELET VOLUME 9.4 fl (7.2-11.7); MONO # 0.5 K/uL (0.0-0.8); MONO % 12.6 % (0.0-10.0); NEUT # 1.9 K/uL (1.8-7.0); NEUT % 43.3 % (50.0-75.0); NRBC % 0.4 % (0.0-0.0); RBC 4.2 Mil/uL (4.40-5.90); RED CELL DISTRIBUTION WIDTH 12.8 % (11.5-14.5); WHITE BLOOD COUNT 4.4 K/uL (4.8-10.8)
[2017-04-03 22:56] LABS: SQUAMOUS EPITHIAL 1 /hpf (0-5); URINE BACTERIA RARE (<OCC); URINE BILIRUBIN NEGATIVE (NEGATIVE); URINE BLOOD NEGATIVE (NEGATIVE); URINE CLARITY CLEAR (Clear); URINE COLOR YELLOW (YELLOW); URINE GLUCOSE (UA) NEG (Normal); URINE LEUKOCYTE ESTERASE NEG Leu/uL (Negative); URINE NITRATE NEGATIVE (NEGATIVE); URINE PROTEIN NEGATIVE (NEGATIVE); URINE UROBILINOGEN 0.2-1.0 mg/dL (0.2-1.0)
[2017-04-03 23:01] LABS: ALB/GLOB RATIO 1.2 (1.0-2.1); ALBUMIN 4.3 g/dL (3.5-5.0); ALT/SGPT 26 U/L (21-72); AST/SGOT 27 U/L (17-59); BLOOD UREA NITROGEN 28 mg/dl (9-20); CALCIUM 9.4 mg/dL (8.4-10.2); GFR AFRICAN-AMERICAN > 60; GFR NON-AFRICAN AMERICAN 56
[2017-04-03] MEDS ORDERED: Sodium Chloride 0.9% 1,000 ML IV STA (23:05)
[2017-04-03] MEDS ORDERED: Iohexol 300 100 ML IJ ONE (23:05)
[2017-04-03] MEDS ORDERED: Sodium Chloride 0.9% 100 ML ONE (23:06)
[2017-04-03 23:13] LABS: PARTIAL THROMBOPLASTIN TIME 28.3 Seconds (25.6-37.1); PROTHROMBIN TIME 11.3 Seconds (9.8-13.1)
--- NOTE | 2017-04-04 00:12 | CT ---
EXAM: CT Abdomen and Pelvis With Intravenous Contrast EXAM DATE/TIME: 04/03/2017 10:18 PM CLINICAL HISTORY: 61 years old, male; Pain; Abdominal pain; Generalized; Additional info: Periumbilical abdominal pain TECHNIQUE: Axial computed tomography images of the abdomen and pelvis with intravenous contrast. All CT scans at this facility use one or more dose reduction techniques, viz.: automated exposure control; ma/kV adjustment per patient size (including targeted exams where dose is matched to indication; i.e. head); or iterative reconstruction technique. Coronal and sagittal reformatted images were created and reviewed. CONTRAST: 90 mL of administered intravenously. COMPARISON: CT ABD AND PELV W/CONTRAST 2012-10-11 17:42 no report FINDINGS: Elevation of the left hemidiaphragm. The liver is normal. The spleen is normal. The pancreas is normal. No gallstones. No hydronephrosis or perinephric stranding. The bowel appears normal. A normal appendix is identified axial images 112-126, coronal 44-55. There is a small umbilical fat hernia similar to prior. There is a small supraumbilical hernia with a small amount of stranding also similar to prior. The prostate is enlarged. No aortic aneurysm or dissection. IMPRESSION: No acute findings. Enlarged prostate.Recommend correlation with PSA level.
[2017-04-04 02:57] VITALS: BP 147/105; PULSE 71; RESP 16; TEMP 98.4
--- NOTE | 2017-04-04 08:17 | RAD ---
HISTORY: cough COMPARISON: Frontal chest radiograph 12/29/2016 TECHNIQUE: Chest PA and lateral FINDINGS: LUNGS: No acute infiltrate bilaterally. Left hemidiaphragm elevation again evident. PLEURA: No significant pleural effusion identified. No pneumothorax apparent. CARDIOVASCULAR: Sternotomy wires and mediastinal surgical clips are again appreciate suggesting prior CABG surgery. No cardiomegaly or pulmonary vascular derangement in the interval. OSSEOUS STRUCTURES: No significant abnormalities. VISUALIZED UPPER ABDOMEN: Normal. OTHER FINDINGS: None. IMPRESSION: No interval acute cardiopulmonary disease appreciable. 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
--- NOTE | 2017-04-04 19:10 | CARD ---
APPROVED REPORT EKG Measurement Heart [id number] [id number] <Conclusion> Sinus bradycardia Possible Left atrial enlargement T inversion V1V2 Borderline ECG
== END 2017-04-04 02:15 | disposition home or self-care (01) ==
LOC: H.ER 21:28
DX: B34.9 Viral infection, unspecified (principal); R10.9 Unspecified abdominal pain; I10 Essential (primary) hypertension; I25.10 Atherosclerotic heart disease of native coronary artery without angina pectoris; E78.00 Pure hypercholesterolemia, unspecified; F32.9 Major depressive disorder, single episode, unspecified; Z95.1 Presence of aortocoronary bypass graft; Z79.82 Long term (current) use of aspirin
CPT/HCPCS: 71046; 74177; 80053; 81003; 84484; 85025; 85610; 85730; 86850; 86900; 87040; 87804; 93005; 99285; J7040; Q9967

== ENCOUNTER 2018-03-07 15:03 | Emergency (ER) | payer MEDICARE, MEDICAID ==
[2018-03-07 16:05] VITALS: PULSE 88
[2018-03-07] MEDS ORDERED: Albuterol-Ipratrop 3 mg / 0.5 (3 ml) UD INH STA (16:59)
[2018-03-07] MEDS ORDERED: Sodium Chloride 0.9% 1,000 ML IV SCH (17:00)
--- NOTE | 2018-03-07 17:01 | ED PDOC ---
HPI: Influenza Time Seen by Provider: 03/07/18 16:53 Chief Complaint: Flu-like Symptoms History Per: Patient Hx Influenza Vaccination: No Past Medical History Reviewed: Historical Data, Nursing Documentation, Vital Signs Vital Signs: Last Vital Signs Temp 98.9 F 03/07/18 16:02 Pulse 88 03/07/18 16:02 Resp 16 03/07/18 16:02 BP 159/97 H 03/07/18 16:02 Pulse Ox 98 03/07/18 16:02 - Medical History PMH: CAD, Depression, HTN, Hypercholesterolemia, Hyperlipidemia, Pneumonia Denies: HIV, Chronic Kidney Disease - Surgical History Surgical History: CABG (x1 vessel 2007) - Family History Family History: States: Unknown Family Hx, Hypertension - Home Medications Home Medications: Ambulatory Orders Medication Instructions Recorded Aspirin [Lo-Dose Aspirin EC] 81 mg PO DAILY 10/28/17 Atorvastatin [Lipitor] 40 mg PO HS 10/28/17 Clopidogrel [Plavix] 75 mg PO DAILY 10/28/17 Metoprolol Tartrate [Lopressor] 50 mg PO HS 10/28/17 Metoprolol Tartrate [Lopressor] 100 mg PO DAILY 10/28/17 Quetiapine Fumarate [Seroquel] 100 mg PO HS 10/28/17 cloNIDine [Catapres] 0.1 mg PO BID 10/28/17 - Allergies Allergies/Adverse Reactions: Allergies Allergy/AdvReac Type Severity Reaction Status Date / Time No Known Allergies Allergy Verified 03/07/18 16:02 Review of Systems ROS Statement: Except As Marked, All Systems Reviewed And Found Negative Respiratory: Positive for: Wheezing Physical Exam - Reviewed Nursing Documentation Reviewed: Yes Vital Signs Reviewed: Yes - Physical Exam Appears: Positive for: Well, No Acute Distress Head Exam: Positive for: ATRAUMATIC, NORMAL INSPECTION Skin: Negative for: Diaphoresis, Pallor, Rash Eye Exam: Positive for: Normal appearance. Negative for: Nystagmus ENT: Positive for: Normal ENT Inspection Neck: Positive for: Normal, Painless ROM, Supple, Decreased ROM Cardiovascular/Chest: Positive for: Regular Rate, Rhythm Respiratory: Positive for: Wheezing. Negative for: Stridor - Laboratory Results Result Diagrams: 03/07/18 18:30 03/07/18 18:30 - ECG O2 Sat by Pulse Oximetry: 98 Disposition - Clinical Impression Clinical Impression: Common cold, Influenza-like symptoms - Patient ED Disposition Is Patient to be Admitted: No Counseled Patient/Family Regarding: Diagnosis, Need For Followup - Disposition Referrals: Radha Hay MD [Family Provider] - Disposition Time: 20:40 Condition: STABLE Additional Instructions: DAYQUIL NYQUIL REST FLUIDS CHICKEN SOUP Instructions: Viral Upper Respiratory Infection, Adult (DC), Cough, Runny Nose, and the Common Cold (DC) Forms: [employer] (Nauruan)
[2018-03-07] MEDS ORDERED: Albuterol-Ipratrop 3 mg / 0.5 (3 ml) UD ONE (17:36)
[2018-03-07 18:45] LABS: BASO % 0.8 % (0.0-2.0); EOS # 0.1 K/uL (0.0-0.7); EOS % 3.3 % (0.0-4.0); HEMOGLOBIN 12.8 g/dL (12.0-18.0); LYMPH # 0.4 K/uL (1.0-4.3); LYMPH % 11.5 % (20.0-40.0); MEAN CELL VOLUME 91.9 fl (80.0-94.0); MEAN CORPUSCULAR HEMOGLOBIN 31.1 pg (27.0-31.0); MEAN CORPUSCULAR HGB CONC 33.8 g/dL (33.0-37.0); MEAN PLATELET VOLUME 10.2 fl (7.2-11.7); MONO # 0.5 K/uL (0.0-0.8); MONO % 13.4 % (0.0-10.0); NEUT # 2.7 K/uL (1.8-7.0); NRBC % 0.1 % (0.0-0.0); RBC 4.12 Mil/uL (4.40-5.90); RED CELL DISTRIBUTION WIDTH 12.7 % (11.5-14.5); WHITE BLOOD COUNT 3.8 K/uL (4.8-10.8)
[2018-03-07 18:51] LABS: ALB/GLOB RATIO 1.2 (1.0-2.1); ALT/SGPT 41 U/L (21-72); AST/SGOT 27 U/L (17-59); BLOOD UREA NITROGEN 10 mg/dl (9-20); CALCIUM 8.7 mg/dL (8.4-10.2); GFR NON-AFRICAN AMERICAN > 60
[2018-03-07 20:29] VITALS: BP 156/91; RESP 17; TEMP 98.7
--- NOTE | 2018-03-08 10:09 | RAD ---
Date of service: 03/07/2018 HISTORY: r/o PNA COMPARISON: 10/28/2017 TECHNIQUE: Chest PA and lateral FINDINGS: LUNGS: No active pulmonary disease. PLEURA: No significant pleural effusion identified. No pneumothorax apparent. CARDIOVASCULAR: No aortic atherosclerotic calcification present. No radiographic findings to suggest acute or significant cardiovascular disease. Incidental Finding(s): Postoperative changes related to sternotomy. No radiographic findings to suggest acute or significant cardiovascular disease. No pulmonary vascular congestion. OSSEOUS STRUCTURES: No significant abnormalities. VISUALIZED UPPER ABDOMEN: Normal. OTHER FINDINGS: None. IMPRESSION: No active disease. No significant interval change compared to the prior examination(s).
[2018-03-30 14:42] VITALS: O2SAT 98
== END 2018-03-07 20:28 | disposition home or self-care (01) ==
LOC: H.ER 15:03
DX: J00 Acute nasopharyngitis [common cold] (principal); J11.1 Influenza due to unidentified influenza virus with other respiratory manifestations; I10 Essential (primary) hypertension; Z86.59 Personal history of other mental and behavioral disorders; Z95.1 Presence of aortocoronary bypass graft; I25.10 Atherosclerotic heart disease of native coronary artery without angina pectoris